=== PATIENT | male | born 1945 | race Caucasian/White ===

== ENCOUNTER 2018-03-10 05:17 | Day surgery (SDC) | payer OTHER, MEDICARE ==
[~2018-03-10] VITALS: Ht 177.8 cm; Wt 93.0 kg
[~2018-03-10 05:17] MED LIST: COZAAR100 MG PO; DOXYCYCLINE HY100 MG PO; HYCODAN SYRUP480 ML PO; LO-DOSE ASPIRIN81 M1 PO; LOPRESSOR25 MG PO; OMEPRAZOLE40 M1 PO; TAMBOCOR50 MG PO
[2018-03-10 05:51] VITALS: BP 167/94
[2018-03-10 06:06] VITALS: BP 167/90
[2018-03-10] MEDS ORDERED: PERCOCET 5/31 TABLET PO (08:52)
[2018-03-10] MEDS ORDERED: COLACE100 MG PO (08:52)
[2018-03-10 10:20] VITALS: BP 181/92
[2018-03-10 11:21] VITALS: BP 153/82
[2018-03-10 13:20] VITALS: BP 156/81
[2018-03-10 15:50] VITALS: BP 156/81
== END 2018-03-10 15:50 | disposition home or self-care (01) ==
LOC: SDC 05:17
DX: K80.10 Calculus of gallbladder with chronic cholecystitis without obstruction (principal); K42.9 Umbilical hernia without obstruction or gangrene; K66.0 Peritoneal adhesions (postprocedural) (postinfection); I10 Essential (primary) hypertension; I48.0 Paroxysmal atrial fibrillation; Z95.0 Presence of cardiac pacemaker; Z95.4 Presence of other heart-valve replacement; K21.9 Gastro-esophageal reflux disease without esophagitis; Z86.010 Personal history of colon polyps; Z87.891 Personal history of nicotine dependence; Z82.49 Family history of ischemic heart disease and other diseases of the circulatory system; Z83.3 Family history of diabetes mellitus; Z82.3 Family history of stroke; Z80.3 Family history of malignant neoplasm of breast; Z80.6 Family history of leukemia; Z80.1 Family history of malignant neoplasm of trachea, bronchus and lung; Z88.5 Allergy status to narcotic agent
CPT/HCPCS: 88304; J0330; J1100; J1170; J1885; J2250; J2405; J2710; J3475; J7643; S0020; S0074